=== PATIENT | female | born 1975 | race Asian ===

== ENCOUNTER → 2025-02-07 11:06 | Outpatient (REF) | payer BC, SELFPAY | LOC: HWRAD 11:06 | PROVIDERS: ATTENDING PHYSICIAN Otolaryngology Facial Plastic Surgery; FAMILY PHYSICIAN Family Medicine | DX: E04.1 Nontoxic single thyroid nodule (principal); J30.1 Allergic rhinitis due to pollen; J34.2 Deviated nasal septum | CPT/HCPCS: 76536 ==